=== PATIENT | female | born 1985 | race Caucasian/White ===

== ENCOUNTER 2022-09-29 10:31 | Emergency (ER) | payer OTHER ==
[2022-09-29] MEDS ORDERED: Acetaminophen 325 MG Tab PO STA (11:34)
[2022-09-29 12:41] VITALS: BP 143/90; PULSE 80
[2022-09-29 13:10] LABS: C. TRACHOMATIS BY PCR NOT DETECTED; N. GONORRHOEAE BY PCR NOT DETECTED
== END 2022-09-29 12:26 | disposition home or self-care (01) ==
LOC: MW.ED 10:31
DX: R10.2 Pelvic and perineal pain (principal); Z88.0 Allergy status to penicillin; Z72.0 Tobacco use
CPT/HCPCS: 81001; 81025; 87480; 87491; 87510; 87591; 87660; 99283; 99284